=== PATIENT | female | born 1930 | race African-American/Black ===

== ENCOUNTER 2018-03-06 14:08 | Emergency (ER) | payer MEDICARE ==
--- NOTE | 2018-03-06 15:32 | RAD ---
PA AND LATERAL VIEWS CHEST: Date: 03/06/18 HISTORY: Fall. Left-sided chest pain. FINDINGS: The heart is enlarged. The aorta is tortuous. The lungs are well expanded without focal areas of cons olidation, pneumothoraces, grayson pulmonary edema, or pleural effusions. There are degenerative change s in the spine. IMPRESSION: Cardiomegaly. POS: [id number]
[2018-03-06 16:47] LABS: #Eosinphils 0.1 thou/uL (0.0-0.7); #Lymphocytes 2.5 thou/uL (1.20-3.40); #Monocytes 0.7 thou/uL (0.11-0.59); #Neutrophils 2.6 thou/uL (1.40-6.50); %Basophils 0.5 % (0.0-1.0); %Eosinophils 1.6 % (0.0-10.0); %Lymphocytes 41.4 % (21.0-51.0); %Monocytes 12.5 % (0.0-10.0); Hemoglobin 10.9 g/dL (12.0-16.0); Mean Corpuscular HGB CONC 31.3 g/dL (32.0-36.0); Mean Corpuscular Hemoglobin 31.5 pg (27.0-31.0); Mean Platelet Volume 6.2 fL (7.4-10.4); Platelet Count 280 thou/uL (130-400); RBC Distribution Width 14.8 % (11.5-14.5); Red Blood Cell (RBC) Count 3.47 mill/uL (4.20-5.40); White Blood Cell (WBC) Count 5.9 thou/uL (4.8-10.8)
[2018-03-06 17:10] LABS: ALT (SGPT) 26 U/L (8-55); AST (SGOT) 21 U/L (5-34); Albumin 3.5 g/dL (3.4-4.8); Alkaline Phosphatase 58 U/L (40-150); Anion Gap 12 mmol/L (10-20); BUN (Urea Nitrogen) 24 mg/dL (9.8-20.1); Bilirubin, Total 0.5 mg/dL (0.2-1.2); Calc. Creatinine Clearance 0 mL/min (70-130); Calcium 9.1 mg/dL (7.8-10.44); Carbon Dioxide 25 mmol/L (23-31); Chloride 108 mmol/L (98-107); Estimated GFR-MDRD 46; Globulin 3.2 g/dL (2.4-3.5); Glucose 194 mg/dL (83-110); Potassium 4.4 mmol/L (3.5-5.1); Protein, Total 6.7 g/dL (6.0-8.3); Sodium 141 mmol/L (136-145)
[2018-03-06 17:14] LABS: CKMB 3.7 ng/mL (0-6.6); Troponin I 0.041 ng/mL (< 0.028)
[2018-03-06] MEDS ORDERED: traMADol HCl 50 MG TAB ONE (17:40)
[2018-03-06 17:46] LABS: Bilirubin Small (Negative); Blood, Urine Trace (Negative); Clarity CLEAR (Clear); Glucose, Urine (Dipstick) 500 mg/dL (Negative); Leukocyte Negative (Negative); Nitrite Negative (Negative); Protein, Urine (Dipstick) 30 mg/dL (Neg-Trace); Specific Gravity, Urine 1.035 (1.002-1.036); Urobilinogen 0.2 mg/dL (0.2-1.0); pH, Urine 5.5 (5.0-9.0)
[2018-03-06 17:50] LABS: Bacteria/HPF None Seen HPF (None Seen); Hyaline Casts/LPF 7-10 HYALINE CAST LPF (0-3 Hyaline); WBC/HPF 0-3 HPF (0-3)
--- NOTE | 2018-03-06 18:59 | CT ---
NONCONTRAST CT OF THE THORAX 03/06/18 INDICATION: History of fall with left sided rib pain. COMPARISON: Chest radiograph performed earlier on 03/06/18. FINDINGS: There is moderate cardiomegaly and small pericardial effusion. There are small bilateral pleural effu sions, left greater than right. There is interstitial prominence and mild perihilar ground glass opac ities suggestive for edema. There are vascular calcifications involving the thoracic aorta and harg[address] ry arteries. No contusion or pleural effusion is evident. There is mild thoracic scoliosis. No displa ramez rib fracture is evident. There is scattered degenerative and osteoarthritic change. IMPRESSION: 1. Findings suggesting mild CHF. 2. No contusion or pneumothorax is demonstrated. 3. No definite acute rib fracture is noted. POS: BH
--- NOTE | 2018-03-12 13:43 | EKG ---
Test Reason : Blood Pressure : / mmHG Vent. Rate : 090 BPM Atrial Rate : 090 BPM P-R Int : 192 ms QRS Dur : 092 ms QT Int : 400 ms P-R-T Axes : 053 -54 031 degrees QTc Int : 489 ms Normal sinus rhythm Left axis deviation Abnormal ECG Confirmed by GERMAINE DEMARCO ([id number]), general expeditor LORENA MEJIA ([id number] on 03/12/2018 1:43:01 PM Referred By: Confirmed By:GERMAINE DEMARCO
== END 2018-03-06 18:35 | disposition home or self-care (01) ==
LOC: ERS 14:08
DX: R07.89 Other chest pain (principal); E11.9 Type 2 diabetes mellitus without complications; I10 Essential (primary) hypertension; W01.0XXA Fall on same level from slipping, tripping and stumbling without subsequent striking against object, initial encounter
CPT/HCPCS: 36415; 71046; 71250; 80053; 81003; 81015; 82553; 84484; 85025; 87086; 93005